=== PATIENT | male | born 1955 | race African-American/Black ===

== ENCOUNTER 2016-12-27 09:29 | Outpatient (RCR) ==
[2016-09-08 13:33] VITALS: BMI 27.7
[2017-01-10 14:18] VITALS: BP 128/70
== END 2017-01-10 ==
LOC: PUL.REHAB 09:29
PROVIDERS: ATTEND Internal Medicine
DX: C34.90 Malignant neoplasm of unspecified part of unspecified bronchus or lung (principal); J42 Unspecified chronic bronchitis

== ENCOUNTER 2017-01-11 09:29 | Outpatient (RCR) ==
[2016-09-08 13:33] VITALS: BMI 27.7
[2017-02-02 11:56] VITALS: BP 138/64
== END 2017-02-10 ==
LOC: PUL.REHAB 09:29
PROVIDERS: ATTEND Internal Medicine
DX: C34.90 Malignant neoplasm of unspecified part of unspecified bronchus or lung (principal); J42 Unspecified chronic bronchitis

== ENCOUNTER 2017-02-11 07:00 | Outpatient (RCR) ==
[2016-09-08 13:33] VITALS: BMI 27.7
[2017-02-24 13:19] VITALS: BP 118/52
== END 2017-03-12 ==
LOC: PUL.REHAB 07:00
PROVIDERS: ATTEND Internal Medicine
DX: C34.90 Malignant neoplasm of unspecified part of unspecified bronchus or lung (principal); J42 Unspecified chronic bronchitis

== ENCOUNTER 2017-03-13 09:01 | Outpatient (RCR) ==
[2016-09-08 13:33] VITALS: BMI 27.7
== END 2017-04-12 ==
LOC: PUL.REHAB 09:01
PROVIDERS: ATTEND Internal Medicine
DX: C34.90 Malignant neoplasm of unspecified part of unspecified bronchus or lung (principal); J44.9 Chronic obstructive pulmonary disease, unspecified

== ENCOUNTER 2017-04-13 06:47 | Outpatient (RCR) ==
[2016-09-08 13:33] VITALS: BMI 27.7
[2017-05-11 11:52] VITALS: BP 138/62
== END 2017-05-12 ==
LOC: PUL.REHAB 06:47
PROVIDERS: ATTEND Internal Medicine
DX: C34.90 Malignant neoplasm of unspecified part of unspecified bronchus or lung (principal); J44.9 Chronic obstructive pulmonary disease, unspecified

== ENCOUNTER 2017-05-15 08:12 | Outpatient (RCR) ==
[2016-09-08 13:33] VITALS: BMI 27.7
[2017-06-08 11:57] VITALS: BP 138/62
== END 2017-06-12 ==
LOC: PUL.REHAB 08:12
PROVIDERS: ATTEND Internal Medicine
DX: C34.90 Malignant neoplasm of unspecified part of unspecified bronchus or lung (principal); J42 Unspecified chronic bronchitis

== ENCOUNTER 2017-05-19 09:13 | Outpatient (CLI) ==
[2016-09-08 13:33] VITALS: BMI 27.7
[2017-05-20 09:02] LABS: % FREE PROSTATE SPECIFIC AG 7.6 % (.); PROSTATE SPECIFIC AG, FREE 0.28 ng/mL
== END 2017-05-19 09:14 | disposition home or self-care (01) ==
LOC: LAB 09:13
PROVIDERS: ATTEND Student in an Organized Health Care Education/Training Program
DX: R97.20 Elevated prostate specific antigen [PSA] (principal)
CPT/HCPCS: 36415; 84153; 84154

== ENCOUNTER 2017-06-13 08:36 | Outpatient (RCR) ==
[2016-09-08 13:33] VITALS: BMI 27.7
[2017-06-28 12:05] VITALS: BP 136/62
== END 2017-06-28 14:00 | disposition home or self-care (01) ==
LOC: PUL.REHAB 08:36
PROVIDERS: ATTEND Internal Medicine
DX: C34.90 Malignant neoplasm of unspecified part of unspecified bronchus or lung (principal); J44.9 Chronic obstructive pulmonary disease, unspecified

== ENCOUNTER 2017-11-27 10:04 | Outpatient (CLI) ==
[2016-09-08 13:33] VITALS: BMI 27.7
== END 2017-11-27 10:05 | disposition home or self-care (01) ==
LOC: LAB 10:04
PROVIDERS: ATTEND Student in an Organized Health Care Education/Training Program
DX: R97.20 Elevated prostate specific antigen [PSA] (principal)
CPT/HCPCS: 36415; 84153

== ENCOUNTER 2018-04-24 06:38 | Outpatient (CLI) | payer OTHER ==
[2016-09-08 13:33] VITALS: BMI 27.7
== END 2018-04-24 06:57 | disposition short-term general hospital (02) ==
LOC: AMBL 06:38
PROVIDERS: ATTEND Internal Medicine Geriatric Medicine
DX: R53.1 Weakness (principal); R06.02 Shortness of breath; I49.3 Ventricular premature depolarization; J44.9 Chronic obstructive pulmonary disease, unspecified; C34.90 Malignant neoplasm of unspecified part of unspecified bronchus or lung

== ENCOUNTER 2018-07-20 10:43 | Emergency (ER) ==
[2018-07-20 10:53] VITALS: BP 148/76; TEMP 98.5; BMI 22.2
[2018-07-20] MEDS ORDERED: DUONEB NEB STA (11:16)
[2018-07-20] MEDS ORDERED: XOPENEX 1.25 MG NEB STA (12:02)
--- NOTE | 2018-07-20 12:24 | CT ---
EXAM: CT chest without contrast. HISTORY: Left lung cancer. Cough. COMPARISON: 09/09/2016. TECHNIQUE: Multiple axial images of the chest were obtained without intravenous contrast. Images we re reformatted in the sagittal and coronal planes. FINDINGS: Evaluation for lymphadenopathy is limited by lack of intravenous contrast.. Nonenlarged m ediastinal lymph nodes are present. Heart size is normal. Atherosclerotic calcifications present. No pericardial effusion identified. A large amount of pleural air and pleural fluid seen in the right mid to lower thorax with some under lying atelectasis in the right middle lobe. Mass-like consolidation in the right apex is stable. Co nsolidation in the medial left upper lobe and superior segment of the left lower lobe with internal a ir bronchograms of bronchiectasis and which appear stable. Clips seen along the left mediastinal mar gin. Consolidation also present in the lingula which is new. There are numerous pulmonary nodules p resent throughout both lungs, largest in the right lower lobe measuring up to 1.9 cm on axial image 3 0 with the largest left-sided nodule measures 0.6 cm on axial image 43. Emphysematous changes are pr esent. Tiny amount of loculated air in the posteromedial left pleural space on axial image 22 is sta ble since 2016. Limited images of the upper abdomen demonstrate no acute finding. Degenerative changes present in the spine. IMPRESSION: 1. Critical result: Large right hydropneumothorax. 2. Bilateral pulmonary nodules consistent with metastatic disease. 3. Stable post-treatment changes in the medial left lung with small chronic loculated left pneumotho rax. 4. Lingular consolidation which could represent atelectasis or pneumonia. Comment: Findings were discussed with Dr. Jasso at 12:19 p.m. on 07/20/2018.
--- NOTE | 2018-07-20 12:29 | ED.PDOC ---
General ED Provider: Dr. DEBORAH ARIAS Chief Complaint: Respiratory Complaint Stated Complaint: shortness of breath Time Seen by Physician: 10:45 (pt arrived not dyspneic or active shortness of breath signs i.e labored breathing) Mode of Arrival: Wheelchair Information Source: Patient Exam Limitations: No limitations (history of LUNG CANCER ) Primary Care Provider: ELOISE ARZATE Nursing and Triage Documentation Reviewed and Agree: Yes (CHEMO EVERY 2 WEEKS LAST ONE WAS 07/18/18) Does patient meet sepsis criteria?: No (LAST RADIATION [place] WAS IN MAY) System Inflammatory Response Syndrome: Not Applicable Sepsis Protocol: For patient's 13 years and over: Temp is 96.8 and below OR 101 and greater Pulse >90 BPM Resp >20/minute Acutely Altered Mental Status Are patient's symptoms suggestive of a new infection, such as: -Pneumonia -Skin, Soft Tissue -Endocarditis -UTI -Bone, Joint Infection -Implantable Device -Acute Abdominal Infection -Wound Infection -Meningitis -Blood Stream Catheter Infection -Unknown Respiratory Complaint Exam - Shortness of Air Complaint/Exam Onset/Duration: OVER 1 WEEKS DURATION Symptoms Are: Resolved Timing: Intermittent (O2 SAT WAS ABOUT 955 ON ARRIVAL ARRIVED W/O LABORED BREATHING OR RESP DISTRESS) Current Severity: None Character: Denies: Dyspnea at rest, Dyspnea on exertion, Orthopnea (NO OTHOPENA ABLE TO LAY DOWN FOR [place] IDENTIFICATION FOR POTENTIAL CHEST TUBE) Aggravating: Reports: None Alleviating: Reports: None Associated Signs and Symptoms: Reports: Cough. Denies: Wheezing, Chest pain with cough, Chest pain, Diaphoresis, Labored breathing History of Healthcare-Acquired Pneumonia: No Pulmonary Embolism Risk Factors: Reports: Bedrest Pseudomonas Risk Factors: Reports: Chronic Lung Disease (ON HOME O2 AT ALL TIMES ) Tuberculosis Risk Factors: Reports: Chronic Resp. Faliure Home Oxygen Use: Yes (SEE ABOBE 2 L) Recent Stress Test: No Recent Echo/LV Function: No Respiratory Distress: None Stridor Present: No Tracheal Deviation: No Subcutaneous Emphysema: No Accessory Muscle Use: No Retractions: Not Present Diminished Breath Sounds: Yes (RIGHT CHEST ) Prolonged Expiratory Phase: No Unable to Speak Full Sentences: No Fatigue: No Leg Swelling: No Miguel's Sign Present: No Grunting Respirations: No Kussmaul Respirations: No Differential Diagnoses: Pneumonia, Bronchitis Quality Indicators for AMI: EKG in 10min. Quality Indicators for Cardiac Chest Pain: EKG in 10min. Quality Indicator For Non-Traumatic Chest Pain/Syncope: EKG Performed Quality Indicators For Pneumonia/CAP: SpO2 assessed, Vital signs, Mental status assessed Review of Systems - Review Of Systems Constitutional: Reports: No symptoms Eyes: Reports: No symptoms Ears, Nose, Mouth, Throat: Reports: No symptoms Respiratory: Reports: Cough, Short of air Cardiac: Reports: No symptoms GI: Reports: No symptoms : Reports: No symptoms Musculoskeletal: Reports: No symptoms Skin: Reports: No symptoms Neurological: Reports: No symptoms Endocrine: Reports: No symptoms Hematologic/Lymphatic: Reports: No symptoms All Other Systems: Reviewed and Negative Past Medical History - Past Medical History Previously Healthy: No Endocrine: Reports: Dyslipidemia Cardiovascular: Reports: CAD, Hypertension Respiratory: Reports: COPD Hematological: Reports: Anemia Gastrointestinal: Reports: GERD Genitourinary: Reports: None Neuro/Psych: Reports: Anxiety Musculoskeletal: Reports: None Cancer: Reports: Lung - Surgical History General Surgical History: Reports: None - Family History Family History: Reports: None - Social History Smoking Status: Former smoker Hx Substance Use: No Alcohol Screening: None Physical Exam - Physical Exam Appearance: Ill-appearing Ill-appearing: Mild Eyes: JEANCARLOS, EOMI, Conjunctiva clear ENT: Ears normal, Nose normal, Oropharynx normal Respiratory: Breath sounds diminished (RIGHT CHEST) Cardiovascular: RRR, Pulses normal, No rub, No murmur GI/: Soft, Nontender, No masses, Bowel sounds normal, No Organomegaly Musculoskeletal: Normal strength, ROM intact, No edema, No calf tenderness Skin: Warm, Dry, Normal color Neurological: Sensation intact, Motor intact, Reflexes intact, Cranial nerves intact, Alert, Oriented Psychiatric: Affect appropriate, Mood appropriate Interpretation - Radiology Interpretation Radiology Interpretation By: Radiologist Radiology Results: Positive (RIGHT SIDED HYDROPNEUMOTHORAX) - Sustainability Analyst Rate: Normal Rhythm: Sinus Ectopy: None - EKG Interpretation Rate: Normal Rhythm: Sinus [place]: Right (PROLONGED QT INTERVAL) Re-Evaluation - Re-Evaluation Time of Re-Evaluation: 11:30 Status: Unchanged Vital Signs Stable: Yes Pain Level: 0 Appearance: NAD Lungs: Clear (LEFT ONLY) Skin: Warm and Dry Neuro: Alert and Oriented X3 CV: RRR - Re-Evaluation Time of Re-Evaluation: 12:38 (NOTIFIED PMD . PMD REQUESTED TRANSFER , CALL TO [facility] ) Status: Unchanged Vital Signs Stable: Yes Pain Level: 0 Appearance: NAD (NO RESP DISTRESS HEMODYNAMICALLY STABLE PULSE 98, RESP 24, BP 164/86 SAT 965 0N 2L) Skin: Warm and Dry Neuro: Alert and Oriented X3 CV: RRR Physician Notification - Case Discussed Physician Notified: PMD Time of Notification: 12:42 (TRANSFER ) Physician Notified: AUSTYN Time of Notification: 12:54 (CASES DISCUSSED HE STATED HE WILL CALL BACK AFTER DISCUSSION WITH CT SURGEON) Consult With: DOCTOR PAT STATED HE WILL PLACE THE CHEST TUBE AND TRANSFER THE PT. Critical Care Note - Critical Care Note Total Time (mins): 0 Course - Course Hematology/Chemistry: 07/20/18 11:40 07/20/18 11:40 Orders, Labs, Meds: Lab Review 07/20/18 07/20/18 07/20/18 11:16 11:40 11:40 WBC 11.93 H RBC 3.43 L Hgb 8.9 L Hct 28.6 L MCV 83.4 MCH 25.9 L MCHC 31.1 L RDW Coeff of Maddi 17.2 H Plt Count 431 Immature Gran % (Auto) 0.9 Neut % (Auto) 72.1 Lymph % (Auto) 4.9 L Summers % (Auto) 17.8 H Eos % (Auto) 3.6 Baso % (Auto) 0.7 Immature Gran # (Auto) 0.1 Neut # (Auto) 8.6 H Lymph # (Auto) 0.6 Summers # (Auto) 2.1 H Eos # (Auto) 0.4 Baso # (Auto) 0.1 Puncture Site R brach O2 Saturation 92.0 L ABG pH 7.490 H ABG pCO2 51.3 H ABG pO2 60.0 L ABG HCO3 39 H ABG Total CO2 41 H ABG Base Excess 16 H Antonio Test + O2 Delivery Device Nc Oxygen Liter Flow 2.00 FiO2 % 28.0 Sodium 135 L Potassium 3.4 L Chloride 90 L Carbon Dioxide 40 H Anion Gap 8.4 BUN 19 Creatinine 1.04 Estimated GFR (MDRD) 88.00 BUN/Creatinine Ratio 18.26 Glucose 89 Calcium 9.1 Total Bilirubin 0.1 L AST 77 H ALT 89 H Alkaline Phosphatase 68 Total Creatine Kinase 686 H CK-MB (CK-2) Pending CK-MB (CK-2) % Pending Troponin I 0.019 Total Protein 7.9 Albumin 3.7 Globulin 4.2 Albumin/Globulin Ratio 0.88 Orders Category Date Time Status ABG DRAW REQUEST Stat CARDIO 07/20/18 11:16 Completed EKG-(ED ONLY) Stat CARDIO 07/20/18 11:15 Completed NEBULIZER TREATMENT Stat CARDIO 07/20/18 12:02 Completed ABG Stat LAB 07/20/18 11:16 Completed CBC W/ AUTO DIFF Stat LAB 07/20/18 11:40 Completed COMPREHENSIVE METABOLIC PANEL Stat LAB 07/20/18 11:40 Results CREATINE KINASE Stat LAB 07/20/18 11:40 Results TROPONIN I Stat LAB 07/20/18 11:40 Results Levalbuterol HCl [Xopenex 1.25 mg] MEDS 07/20/18 12:02 Discontinued 1 vial NEB ONCE STA CT CHEST W/O CONTRAST Stat RADS 07/20/18 11:15 Completed Medications Discontinued Medications Generic Name Dose Route Start Last Admin Trade Name Freq PRN Reason Stop Dose Admin Levalbuterol HCl 1 vial 07/20/18 12:02 07/20/18 12:03 Xopenex 1.25 Mg NEB 07/20/18 12:03 1 vial ONCE STA Administration Vital Signs: Temp Pulse Resp BP Pulse Ox 07/20/18 10:44 98.5 F 98 H 20 148/76 H 87 L Departure - Departure Time of Disposition: 13:15 (WHILE IN ED PT HAD NO ACUTE EVENTS . ) Disposition: TSF SHORT-TRM HOSP Discharge Problem: Hydropneumothorax Instructions: Spontaneous Pneumothorax (ED) Condition: Good Pt referred to PMD for follow-up: Yes IPMP verified?: No Allergies/Adverse Reactions: Allergies varenicline tartrate [From Chantix] Adverse Reaction (Verified 07/20/18 10:54) Nausea Home Medications: Ambulatory Orders Aspirin [Aspirin EC] 81 mg PO DAILY 07/24/13 Pantoprazole Sodium [Protonix] 40 mg PO DAILY 07/24/13 Ipratropium/Albuterol Neb [Duoneb] 1 vial NEB RTQ8H PRN 02/05/15 Albuterol Sulfate [Proair Respiclick] 2 puff IH Q6HR 09/08/16 Hydrocodone/Acetaminophen [Hydrocodon-Acetaminophn 10-325] 1 each PO Q6HR PRN Montelukast Sodium [Singulair] 10 mg PO BEDTIME 09/08/16 Potassium Chloride [K-Tab ER] 10 meq PO QAM 09/08/16 Spironolactone 25 mg PO BID 09/08/16 Diltiazem HCl [Cardizem] 60 mg PO Q12HR #60 tablet 09/12/16 Amiodarone HCl [Cordarone] 200 mg PO DAILY 07/20/18 Benzonatate 200 mg PO TID 07/20/18 Ferrous Sulfate [Feosol] 325 mg PO TID 07/20/18 Hydrocodone Bit/Homatrop Me-Br [Hydrocodone-Homatropine 5-1.5] 1 each PO Q6HR Megestrol Acetate Susp [Megace] 800 mg PO DAILY 07/20/18 Metoprolol Tartrate [Lopressor] 12.5 mg PO BID 07/20/18 Mirtazapine [Remeron] 15 mg PO BEDTIME 07/20/18 Naloxegol Oxalate [Movantik] 25 mg PO DAILY 07/20/18 Transfer Form Completed: Yes Disposition Discussed With: Patient, Family
== END 2018-07-20 13:45 | disposition short-term general hospital (02) ==
LOC: ED 10:43
DX: J94.8 Other specified pleural conditions (principal); R06.02 Shortness of breath; C34.90 Malignant neoplasm of unspecified part of unspecified bronchus or lung; Z99.81 Dependence on supplemental oxygen; E78.5 Hyperlipidemia, unspecified; I10 Essential (primary) hypertension; I25.10 Atherosclerotic heart disease of native coronary artery without angina pectoris; D64.9 Anemia, unspecified; Z79.899 Other long term (current) drug therapy
CPT/HCPCS: 36415; 80053; 82550; 82553; 82803; 84484; 85025; 93005; 93010; 94640; 99285